=== PATIENT | female | born 1970 | race Caucasian/White ===

== ENCOUNTER 2023-09-28 15:20 | Observation (INO) | payer MEDICAID, SELFPAY ==
[2023-09-28] VITALS (29 sets, daily range): BP systolic 109–161; BP diastolic 73–124; PULSE 109–139; RESP 14–28; TEMP 36.5–37.1; O2SAT 93–99; BMI 40.8
--- NOTE | ~2023-09-28 | XR_ITS ---
EXAMINATION: XR chest 1V portable DATE: 09/28/2023 16:04 INDICATION: Increased shortness of breath. Midsternal chest pain. TECHNIQUE: A single frontal view of the chest was obtained. COMPARISON: None. FINDINGS: Breast density decreases sensitivity in the lower lung zones. There is no pneumonia, pleura l effusion, or pneumothorax. The heart size is normal. IMPRESSION: 1. No acute cardiopulmonary disease. Reviewed, dictated and finalized at location [facility]
--- NOTE | 2023-09-28 15:29 | ECG_ITS ---
Measurements Intervals [place] Rate: 123 P: 269 ND: 180 QRS: 69 QRSD: 85 T: 57 QT: 304 QTc: 436 Interpretive Statements SINUS OR ECTOPIC ATRIAL TACHYCARDIA INCOMPLETE RIGHT BUNDLE BRANCH BLOCK BASELINE ARTIFACT- I, II, III, AVR, AVL, AVF, V1-V6 ABNORMAL ECG NO PREVIOUS ECG AVAILABLE FOR COMPARISON Electronically Signed On 09-28-2023 16:03:44 SENIOR CLINICAL DATA COORDINATOR by Evan Watson D.O.
[2023-09-28 15:37] LABS: Basophils Absolute Auto 0.01 K/mm3 (0.00-0.10); Basophils Percent Auto 0.1 % (0.0-1.0); Eosinophils Percent Auto 2.9 % (1.0-6.0); Hematocrit 43.8 % (35.0-49.0); Hemoglobin 14.1 g/dL (12.0-15.0); Immature Granulocyte Absolute 0.04 K/mm3 (0.00-0.00); Immature Granulocyte Percent A 0.6 % (0.0-0.0); Lymphocytes Absolute Auto 1.91 K/mm3 (1.10-4.50); Mean Corpuscular HGB Conc 32.2 g/dL (32.0-36.0); Mean Corpuscular Hemoglobin 28.7 pg (27.0-31.0); Mean Corpuscular Volume 89.2 fL (78.0-102.0); Mean Platelet Volume 9.6 fl (9.2-11.8); Monocytes Absolute Auto 0.56 K/mm3 (0.10-0.90); Monocytes Percent Auto 8.2 % (2.0-11.0); Neutrophils Absolute Auto 4.1 K/mm3 (1.7-7.2); Neutrophils Percent Auto 60.2 % (50.0-70.0); Platelet Count Result 344 K/mm3 (150-420); Red Blood Count 4.91 M/mm3 (4.20-5.40); Red Cell Distribution Width 13.2 % (11.6-14.4); White Blood Count 6.8 K/mm3 (4.8-10.8)
[2023-09-28] MEDS: LORazepam (*CRX) 0.5 MG TABLET PO ×2 (15:37→18:38)
[2023-09-28] MEDS: IPRATROPIUM 0.5 MG/ALBUTEROL SULFATE 2.5 MG AMPUL.NEB 3 ML INHALATION ×2 (15:38→18:53)
[2023-09-28] MEDS: methylPREDNISolone SOD SUCC 125 MG VIAL IV PUSH (15:40)
--- NOTE | 2023-09-28 15:42 | ED.GENADULT ---
HPI - General Adult General Chief complaint: Anxiety Stated complaint: sob Time Seen by Provider: 09/28/23 15:29 Source: patient Mode of arrival: ambulatory Limitations: no limitations History of Present Illness HPI narrative: patient is a 52-year-old female with some chest pain shortness of breath and anxiety. She just moved to the area and is out of all her medications and is having stress about that issue. She is also stressed about not having her home oxygen at 1 L nasal cannula at rest. Onset (ago): week(s) (2) Location: chest Radiation: non-radiation Severity: mild Severity scale (1-10): 3 Quality: burning Pain Consistency: intermittent Relieving factors: none Exacerbating factors: other ( Out of home medications and oxygen) Associated symptoms: chest pain and shortness of breath Treatments prior to arrival: none Related Data Home Medications Medication Instructions Recorded Confirmed albuterol sulfate 90 mcg/actuation 2 puff inhalation QID PRN Wheezing 09/28/23 09/28/23 aerosol inhaler aspirin 81 mg chewable tablet 81 mg PO DAILY 09/28/23 09/28/23 atorvastatin 20 mg tablet 20 mg PO DAILY 09/28/23 09/28/23 cetirizine 10 mg tablet 10 mg PO DAILY 09/28/23 09/28/23 duloxetine 30 mg capsule,delayed 60 mg PO DAILY 09/28/23 09/28/23 release fluticasone 250 mcg-salmeterol 50 1 inh inhalation Q12H 09/28/23 09/28/23 mcg/dose blistr powdr for inhalation (Advair Diskus) furosemide 40 mg tablet 40 mg PO DAILY 09/28/23 09/28/23 hydroxyzine HCl 10 mg tablet 20 mg PO TID PRN Anxiety 09/28/23 09/28/23 metoprolol succinate 100 mg 150 mg PO DAILY 09/28/23 09/28/23 tablet,extended release 24 hr sacubitril 24 mg-valsartan 26 mg 1 tablet PO BID 09/28/23 09/28/23 tablet (Entresto) spironolactone 25 mg tablet 25 mg PO DAILY 09/28/23 09/28/23 tiotropium bromide 18 mcg capsule 1 cap inhalation DAILY 09/28/23 09/28/23 with inhalation device (Spiriva with HandiHaler) Allergies Allergy/AdvReac Type Severity Reaction Status Date / Time No Known Allergies Allergy Verified 09/28/23 15:37 Review of Systems Review of Systems: All systems reviewed & are unremarkable except as noted in HPI and below Constitutional: Constitutional: Reports no additional constitutional complaints Eyes: Eyes: Reports no additional eye complaints ENT: Reports system reviewed and no additional complaints, except as documented Cardiovascular: Cardiovascular: Reports no additional cardiovascular complaints Respiratory: Respiratory: Reports no additional respiratory complaints Gastrointestinal: Gastrointestinal: Reports no additional gastrointestinal complaints Genitourinary: Genitourinary: Reports no additional female genitourinary complaints Musculoskeletal: Musculoskeletal: Reports no additional musculoskeletal complaints Integumentary/Breasts: Skin/Breast: Reports system reviewed and no additional complaints, except as docu Neurologic: Reports system reviewed and no additional complaints, except as documented Psychiatric: Psychiatric: Reports no additional psychiatric complaints Endocrine: Endocrine: Reports no additional endocrine complaints Hematologic/Lymphatic: Hematologic/Lymphatic: Reports no additional hematologic/lymphatic complaints Allergic/Immunologic: Allergic/Immunologic: Reports no additional allergic/immunologic complaints Exam Const: General: ill appearing Nutritional Appearance: well nourished Orientation/consciousness: patient oriented x3 HENMT: Head: normal to inspection Ears: external ears normal Face/Nose/Sinus: Normal external nose present Eyes: Conjunctivae: conjunctivae normal Pupils: Equal, round and reactive pupils present EOM: EOMs intact bilaterally Neck: Neck: normal visual inspection Chest: Chest palpation & inspection: normal inspection of the chest Resp: Effort & Inspection: normal respiratory effort Auscultation: clear to auscultation bilaterally and no crackles Cardio:
[2023-09-28 15:49] LABS: D Dimer 0.25 mg/L (0.19-0.50)
[2023-09-28 16:00] LABS: Lactic Acid Reflex 0.9 mmol/L (0.4-2.0)
[2023-09-28 16:01] LABS: Alanine Aminotransferase 61 U/L (14-59); Albumin Level 3.9 g/dL (3.4-5.0); Alkaline Phosphatase 148 U/L (46-116); Anion Gap 12 mmol/L (8-16); Aspartate Amino Transferase 23 U/L (15-37); Bilirubin,Total 0.3 mg/dL (0.00-1.00); Blood Urea Nitrogen 13 mg/dL (7-18); Calcium 8.9 mg/dL (8.5-10.1); Carbon Dioxide 28 mmol/L (21-32); Chloride 101 mmol/L (98-108); Estimated Glomerular Filt Rate > 60; Glucose 109 mg/dL (70-99); NT Pro B Type Natriuretic Pept 60 pg/mL (0-125); Osmolality Calculated 293 mOsm/kg (285-295); Potassium 3.8 mmol/L (3.5-5.1); Sodium 141 mmol/L (136-145); Total Protein 7.8 g/dL (6.4-8.2)
[2023-09-28 16:06] LABS: Lipase 27 U/L (16-77); Troponin I 5.9 ng/L (0.00-60.4)
[2023-09-28 16:12] LABS: Appearance Urine Clear (Clear); Bilirubin Urine Negative (Negative); Blood Urine Negative (Negative); Color Urine Light Yellow (Yellow); Glucose Urine UA Negative (Negative); Ketones Urine Negative (Negative); Leukocyte Esterase Ur Negative LEU/UL (Negative); Nitrate Urine Negative (Negative); Protein Urine Negative (Negative); Urobilinogen Urine 0.2 mg/dL (0.2-1.0)
[2023-09-28 16:50] LABS: Influenza A QL RT-PCR Negative (Negative); Influenza B QL RT-PCR Negative (Negative); RSV RNA, RT-PCR Positive (Negative); SARS-CoV-2 RNA PCR Negative (Negative)
[2023-09-28] MEDS: METOPROLOL TARTRATE 6.25 MG TABLET PO (18:38)
[2023-09-28] MEDS: SALMET XINAFT/FLUTIC PROPIN 250 MCG/50 MCG INH CAP 1 PUFF INHALATION (18:40)
[2023-09-28] MEDS: hydrOXYzine HCL 25 MG TABLET PO (20:58)
[2023-09-28 21:59] LABS: Troponin I 4.6 ng/L (0.00-60.4)
[2023-09-29] VITALS (18 sets, daily range): BP systolic 107–149; BP diastolic 65–82; PULSE 97–150; RESP 17–24; TEMP 36.1–36.7; O2SAT 91–99
[2023-09-29] MEDS: IPRATROPIUM 0.5 MG/ALBUTEROL SULFATE 2.5 MG AMPUL.NEB 3 ML INHALATION ×2 (00:10→05:30)
[2023-09-29] MEDS: SALMET XINAFT/FLUTIC PROPIN 250 MCG/50 MCG INH CAP 1 PUFF INHALATION ×2 (05:40→17:56)
[2023-09-29 05:50] LABS: Basophils Absolute Auto 0.01 K/mm3 (0.00-0.10); Basophils Percent Auto 0.2 % (0.0-1.0); Hematocrit 40.3 % (35.0-49.0); Hemoglobin 12.9 g/dL (12.0-15.0); Immature Granulocyte Absolute 0.02 K/mm3 (0.00-0.00); Immature Granulocyte Percent A 0.4 % (0.0-0.0); Lymphocytes Absolute Auto 1.15 K/mm3 (1.10-4.50); Lymphocytes Percent Auto 20.9 % (18.0-42.0); Mean Corpuscular Hemoglobin 29.1 pg (27.0-31.0); Mean Corpuscular Volume 90.8 fL (78.0-102.0); Mean Platelet Volume 9.6 fl (9.2-11.8); Monocytes Absolute Auto 0.15 K/mm3 (0.10-0.90); Monocytes Percent Auto 2.7 % (2.0-11.0); Neutrophils Absolute Auto 4.2 K/mm3 (1.7-7.2); Neutrophils Percent Auto 75.8 % (50.0-70.0); Platelet Count Result 300 K/mm3 (150-420); Red Blood Count 4.44 M/mm3 (4.20-5.40); Red Cell Distribution Width 13.2 % (11.6-14.4); White Blood Count 5.5 K/mm3 (4.8-10.8)
[2023-09-29 06:09] LABS: Alanine Aminotransferase 50 U/L (14-59); Albumin Level 3.3 g/dL (3.4-5.0); Alkaline Phosphatase 129 U/L (46-116); Anion Gap 9 mmol/L (8-16); Aspartate Amino Transferase 14 U/L (15-37); Bilirubin,Total 0.3 mg/dL (0.00-1.00); Blood Urea Nitrogen 13 mg/dL (7-18); Calcium 8.9 mg/dL (8.5-10.1); Carbon Dioxide 32 mmol/L (21-32); Chloride 102 mmol/L (98-108); Estimated CRCL calculation 74 ml/min; Estimated Glomerular Filt Rate > 60; Glucose 152 mg/dL (70-99); Osmolality Calculated 299 mOsm/kg (285-295); Potassium 3.9 mmol/L (3.5-5.1); Sodium 143 mmol/L (136-145)
--- NOTE | 2023-09-29 06:55 | PC.NURSE ---
Dr. Zaidi called to get an update on pt. Report given and no new orders at this time.
--- NOTE | 2023-09-29 07:00 | ECG_ITS ---
Measurements Intervals [place] Rate: 100 P: 82 WV: 177 QRS: 82 QRSD: 97 T: 69 QT: 364 QTc: 471 Interpretive Statements SINUS TACHYCARDIA INCOMPLETE RIGHT BUNDLE BRANCH BLOCK MINIMAL Q WAVES- ANTEROLAT/INF LEADS BORDERLINE ECG COMPARED TO ECG 09/28/2023 15:48:19 HEART RATE HAS DECREASED Electronically Signed On 09-29-2023 6:54:56 AIRCRAFT COMMUNICATOR by Evan Watson D.O.
[2023-09-29] MEDS: DULoxetine HCL 30 MG CAPSULE.DR 60 MG PO (09:14)
[2023-09-29] MEDS: ATORVASTATIN 10 MG TABLET 20 MG PO (09:14)
[2023-09-29] MEDS: LORazepam (*CRX) 0.5 MG TABLET PO ×2 (09:14→16:19)
[2023-09-29] MEDS: SPIRONOLACTONE 25 MG TABLET PO (09:15)
[2023-09-29] MEDS: ASPIRIN 81 MG CHEWABLE TABLET PO (09:15)
[2023-09-29] MEDS: METOPROLOL TARTRATE 6.25 MG TABLET PO ×2 (09:15→20:54)
[2023-09-29] MEDS: FUROSEMIDE 40 MG TABLET PO (09:15)
[2023-09-29] MEDS: methylPREDNISolone SOD SUCC 125 MG VIAL 60 MG IV PUSH (09:16)
[2023-09-29] MEDS: METOPROLOL TARTRATE INJ 5 MG/5 ML VIAL IV PUSH (09:17)
--- NOTE | 2023-09-29 09:18 | PM.IMHP ---
H&P: HPI History of Present Illness Date/Time: 09/29/23 09:18 Chief Complaint: RSV, Anxiety , Tachycardia Narrative: This is 52 year old female that is presented to the hosptial with shortness of breath and anxiety. Patient has just moved here from [place] and she generally has oxygen prn at night time. According to patient she was at home thinking and her anxitey has taken over. Mrs Devlin has been without her medication for some time. According to patient she stress alot she become tearful when I am having a conversation with her and then she begin to panic. I had to have a long converstation with her to calm her down. The whole time patient is without her oxygen and I have th pulse ox on her and she is sating between 90 to 93%. Patient has flight of thought and she is worrying about outside home life. Patient become tachycardic when she panic. I discussed with nursing staff and 5mg of IV lopressor was indicated for patient . Patient is on a low dose of lopressor unsure if it works for patient as she has not taken her medication in some time as she has not had insurance or money per patient and she states she took her oxygen back as she did not want to be charge for the oxygen. Patient was found to have RSV and she is being given IV Steroids and some breathing treatment. We will keep patient and continue her on isolation and treat her for anxiety and her RSV. Patient has a pmh gerd, hypertension, Anxiety and COPD . Review of Systems Review of Systems: shortness of breath , Weakness, Anxiety All systems reviewed & are unremarkable except as noted in HPI and below PMFSH Past Medical History Medical History (Updated 09/29/23 @ 09:25 by Shahid Guevara NP) Anxiety COPD (chronic obstructive pulmonary disease) Social History Social History Smoking status: Former smoker Second hand tobacco smoke exposure: Yes Alcohol intake: never Substance use: never Substance use type: marijuana Last use: 09/25/23 Do You Feel Safe in your Home?: Yes Lack of Transportation: No Lack of Food: Never True Current Housing: I Have Housing Concerned About Future Housing: No Difficulty Paying Gas/Electric Bills: No Difficulty Paying for Meds: YES Currently Unemployed: Decline to Answer Education: High School Diploma/GED Difficulty w/ Childcare or Family Care: No Spiritual care concerns: No Meds Home Medications and Allergies Home Medications Medication Instructions Recorded Confirmed Type albuterol sulfate 90 mcg/actuation 2 puff inhalation QID PRN Wheezing 09/28/23 09/28/23 History aerosol inhaler aspirin 81 mg chewable tablet 81 mg PO DAILY 09/28/23 09/28/23 History atorvastatin 20 mg tablet 20 mg PO DAILY 09/28/23 09/28/23 History cetirizine 10 mg tablet 10 mg PO DAILY 09/28/23 09/28/23 History duloxetine 30 mg capsule,delayed 60 mg PO DAILY 09/28/23 09/28/23 History release fluticasone 250 mcg-salmeterol 50 1 inh inhalation Q12H 09/28/23 09/28/23 History mcg/dose blistr powdr for inhalation (Advair Diskus) furosemide 40 mg tablet 40 mg PO DAILY 09/28/23 09/28/23 History hydroxyzine HCl 10 mg tablet 20 mg PO TID PRN Anxiety 09/28/23 09/28/23 History metoprolol succinate 100 mg 150 mg PO DAILY 09/28/23 09/28/23 History tablet,extended release 24 hr sacubitril 24 mg-valsartan 26 mg 1 tablet PO BID 09/28/23 09/28/23 History tablet (Entresto) spironolactone 25 mg tablet 25 mg PO DAILY 09/28/23 09/28/23 History tiotropium bromide 18 mcg capsule 1 cap inhalation DAILY 09/28/23 09/28/23 History with inhalation device (Spiriva with HandiHaler) Allergies Allergy/AdvReac Type Severity Reaction Status Date / Time No Known Allergies Allergy Verified 09/28/23 15:37 Vital Signs Vital Signs - 24 hr 09/28/23 15:20 09/28/23 15:22 09/28/23 15:30 Temperature 98.7 F Pulse Rate 135 H 133 H 139 H Respiratory Rate 17
[2023-09-29] MEDS: LEVALBUTEROL NEB 1.25 MG/3 ML INHALATION ×2 (11:26→17:56)
[2023-09-29] MEDS: hydrOXYzine HCL 25 MG TABLET PO ×2 (11:26→20:54)
[2023-09-29] MEDS: ONDANSETRON INJ 4 MG/2 ML VIAL IV PUSH (19:54)
[2023-09-30] VITALS (8 sets, daily range): BP systolic 135–136; BP diastolic 75–81; PULSE 94–130; RESP 17–20; TEMP 36.2–36.4; O2SAT 91–97
[2023-09-30] MEDS: LEVALBUTEROL NEB 1.25 MG/3 ML INHALATION ×2 (00:41→05:54)
[2023-09-30] MEDS: SALMET XINAFT/FLUTIC PROPIN 250 MCG/50 MCG INH CAP 1 PUFF INHALATION (05:54)
[2023-09-30] MEDS: hydrOXYzine HCL 25 MG TABLET PO ×2 (05:54→09:58)
--- NOTE | 2023-09-30 09:02 | PM.DS ---
DS: Admitting Diagnosis Discharge Date 09/30/2023 Admitting Diagnosis Shortness of breath, Anxiety DS: Discharge Diagnosis Discharge Diagnosis (1) SVT (supraventricular tachycardia): Code(s): I47.10 - Supraventricular tachycardia, unspecified Status: Acute Assessment and Plan: Pushed Lopressor 5mg heart rate in the 150s will continue to monitor patient on Tele if heart rate is in the 120 and 130 after 5 minutes after we push first dose we will push lopressor x1 more time. (2) COPD (chronic obstructive pulmonary disease): Code(s): J44.9 - Chronic obstructive pulmonary disease, unspecified Status: Acute Assessment and Plan: See #1 use home medication (3) Anxiety: Code(s): F41.9 - Anxiety disorder, unspecified Status: Acute Assessment and Plan: Atarax Ativan (4) RSV bronchitis: Code(s): J20.5 - Acute bronchitis due to respiratory syncytial virus Status: Acute Assessment and Plan: IV steroids breathing treatment Xopenex oxygen as indicated monitor pulse oxy DS: Summary Hospital Course Reason for hospitalization: SVT, anxiety, RSV Hospital Course: This is a 53 year old female that was admitted due to her anxiety as well as being positive for RSV. Patient has a lot of home issues which interfers with some of her medical issues as she has been noncompliant. According to patient she has had home oxygen for bed time but she states she moved to [place] from [place] and she gave her oxygen back. Patient has not had oxygen for month. Patient has not had medication filled for month in which I did refill all of her medication that she states she was on. I did have a walk study completed as well for patient although she now informs me on discharge that she does not have insurance. Patient will go into crying spells and this she complains of shortness of breath. Patient was able to sleep without oxygen and she remained stable with her o2 saturation that have remain normal . Mrs Devlin has RSV and was on droplet isolation . I have convert her to oral medication and educated her what is expected and where she should apply for insurance as well. Patient heart rate when I examined her was in the 90s and she has received her blood pressure medication. Pt is nervous about going home per her but stable. Time Spent with Patient Time attestation: Total time spent providing and/or coordinating discharge services: Exam Const: General: comfortable and in distress (crying and anxious ) Resp: Auscultation: diminished lung sounds Cardio: Rate: regular rate GI: Inspection: non-distended : General: Yes bladder normal to palpation Back/Spine/Pelvis: Back: no CVA tenderness Neuro: General: patient oriented x3 and gait normal (Limps with ambulation ) Speech: normal speech Sensory Exam: normal sensation Psych: Affect: Anxious affect present Attitude: cooperative DS: Data Data Completed and Pending Labs on day of discharge: Preliminary micro results at discharge 09/28/23 15:47 Blood Culture - Preliminary Blood 09/28/23 15:47 Blood Culture - Preliminary Blood Discharge Plan Discharge Attending physician on discharge: Chele Bedoya Consulting providers: Shahid Guevara; Evan Watson; Brayden Looney V. Discharging Clinician: Shahid Guevara Anticipated Discharge Date/Time: 09/30/23 08:57 Patient Disposition: Home, Self-Care Activity: may shower Diet: heart healthy Wound Care Instructions: follow printed instructions Discharge Instructions: You need to find a psychiatrist You need to follow up with your primary care provider You need to discuss with your PCP so you can see if you qualify for oxygen here. You have been off of oxygen for the past 24 hours and your saturation have been above 90%. Make sure that you wear a mask as you have RSV Patient is in need of oxygen per patient Patient Instructions
[2023-09-30] MEDS: SPIRONOLACTONE 25 MG TABLET PO (09:58)
[2023-09-30] MEDS: ATORVASTATIN 10 MG TABLET 20 MG PO (09:58)
[2023-09-30] MEDS: ASPIRIN 81 MG CHEWABLE TABLET PO (09:58)
[2023-09-30] MEDS: DULoxetine HCL 30 MG CAPSULE.DR 60 MG PO (09:58)
[2023-09-30] MEDS: FUROSEMIDE 40 MG TABLET PO (09:58)
[2023-09-30] MEDS: methylPREDNISolone SOD SUCC 125 MG VIAL 60 MG IV PUSH (09:58)
[2023-09-30] MEDS: METOPROLOL SUCCINATE EXT REL 50 MG TABCR PO (09:59)
--- NOTE | 2023-09-30 12:05 | PC.NURSE ---
Discharge packet reviewed with patient. All questions answered. Pt escorted via wheelchair to main lobby to await arrival of her brother.
--- NOTE | 2023-10-01 10:46 | PC.NURSE ---
Discharge call back completed, doing well at home, understood dc instructions, did receive her medical card and can get her meds now and has appointment with provider this week
== END 2023-09-30 12:05 | disposition home or self-care (01) ==
LOC: CHSED 16:08 → CHS2ND 17:23
PROVIDERS: Admitting Provider Internal Medicine; Emergency Provider Emergency Medicine; PCP Physician Assistant; Visit Provider Internal Medicine
DX: J44.0 Chronic obstructive pulmonary disease with (acute) lower respiratory infection (principal); J20.5 Acute bronchitis due to respiratory syncytial virus; F41.9 Anxiety disorder, unspecified; I47.10 Supraventricular tachycardia, unspecified; I11.0 Hypertensive heart disease with heart failure; I50.9 Heart failure, unspecified; Z20.822 Contact with and (suspected) exposure to COVID-19; K21.9 Gastro-esophageal reflux disease without esophagitis; R94.31 Abnormal electrocardiogram [ECG] [EKG]; Z87.891 Personal history of nicotine dependence; Z79.51 Long term (current) use of inhaled steroids; Z79.82 Long term (current) use of aspirin; Z79.899 Other long term (current) drug therapy; F12.90 Cannabis use, unspecified, uncomplicated
CPT/HCPCS: 36415; 71045; 80053; 83605; 83690; 83880; 84484; 85025; 85380; 87040; 87637; 93005; 94640; 96374; 96375; 99285; A9270; G0378; G0379; J2405; J2930